=== PATIENT | male | born 1990 | race Caucasian/White ===

== ENCOUNTER 2024-03-14 21:38 | Emergency (ER) | payer SELFPAY ==
[2024-03-14 22:02] VITALS: BP 125/87
[2024-03-14 22:18] LABS: % Basophils 0.1 % (0-2); % Eosinophils 0.4 % (0-6); % Immature Granulocytes 0.1 % (0-0.5); % Lymphocytes 21.5 % (20.5-51.1); % Monocytes 8.1 % (1.7-9.3); % Neutrophils 69.8 % (42.2-75.2); Absolute Lymphocytes 1.6 10^3/uL (1.2-3.4); Absolute Monocytes 0.6 10^3/uL (0.1-0.6); Hematocrit 46.9 % (39.0-52.0); Hemoglobin 16.8 g/dL (13.0-18.0); Mean Corp Hgb Conc. 35.8 g/dL (33.0-37.0); Mean Corpuscular Hgb 30.1 pg (27.0-31.0); Mean Corpuscular Volume 84.1 fL (80.0-94.0); Mean Platelet Volume 10.2 fL (7.4-10.4); Nucleated Red Blood Cells % 0 % (-); Platelet Count 164 10^3/uL (130-400); Red Blood Cell Count 5.58 10^6/uL (4.70-6.10); Red Cell Dist. Width 12.3 % (11.5-14.5); White Blood Cell Count 7.2 10^3/uL (4.8-10.8)
[2024-03-14 22:34] LABS: ALT (SGPT) 192 U/L (0-50); AST (SGOT) 91 U/L (17-59); Albumin 4.5 g/dl (3.5-5.0); Alkaline Phosphatase 51 U/L (38-126); Blood Urea Nitrogen 21 mg/dl (9-20); Calcium 9.6 mg/dl (8.4-10.2); Carbon Dioxide 26 mmol/L (22-30); Chloride 104 mmol/L (98-107); Glucose 101 mg/dl (70-99); Lipase 51 U/L (23-300); Potassium 4.9 mmol/L (3.5-5.1); Sodium 141 mmol/L (135-145); Total Bilirubin 0.8 mg/dl (0.2-1.3); Total Protein 7.6 g/dl (6.3-8.2); eGFR > 60.00
[2024-03-14 22:49] LABS: Urine Albumin Trace (Neg - Trace); Urine Bilirubin Negative (Negative); Urine Character Clear (Clear); Urine Color Yellow; Urine Glucose Negative (Negative); Urine Ketone 2+ (Negative); Urine Leukocyte Negative (Negative); Urine Nitrite Negative (Negative); Urine Occult Blood Negative (Negative); Urine Urobilinogen Negative (Neg - 1+)
[2024-03-14 23:36] VITALS: BP 124/66
[2024-03-14 23:37] VITALS: BMI 21.7
[2024-03-15] VITALS: BP 132/63
[2024-03-15 01:16] VITALS: BP 124/70
--- NOTE | 2024-03-15 01:29 | ED.GENMED ---
History of Present Illness
General
Chief Complaint: Abdominal Pain
Source: patient
Exam Limitations: none
Time Seen by Provider: 03/15/24 00:32
History of Present Illness
History of Present Illness:
This is a 33 year old male that comes in with c/o abd pain. States that this started last Saturday and has been constant. States that he has tried Ibuprofen and it is not getting any better. States that occasionally he may get just a little relief
but then it gets bad again. States that he went to and was diagnosed with the Flu on Saturday. Denies any fever, chills, chest pain, SOB, nausea, vomiting, diarrhea, headache, dizziness, urinary burning.
Past History
Past History
ED Past Medical History: None; Negative Asthma, HTN, Hypercholesterolemia or NIDDM
ED Past Surgical History: None
Social History
Tobacco: Former smoker
Alcohol: None
Personal: Single
Living: with family
Review of Systems
Review of Systems
All Other Systems: ROS reviewed and negative except as documented in HPI and ROS
Constitutional: Reports no symptoms; Denies fever or chills
EENT: Reports no symptoms
Respiratory: Reports no symptoms; Denies cough or trouble breathing
Cardiac: Reports no symptoms; Denies chest pain
ABD/GI: Reports abdominal pain; Denies nausea, vomiting or diarrhea
: Reports no symptoms; Denies dysuria, frequency or urgency
Musculoskeletal: Reports no symptoms
Skin: Reports no symptoms
Neurological: Reports no symptoms; Denies dizzy or headache
Psychiatric: Reports no symptoms
Phy Exam
General Physical Exam
General Presentation: mild distress
General age: appears stated age
General Skin: warm and dry
General Habitus: normal
General Mental: alert
General Hydration: appears well hydrated
ENT Exam
ENT Exam: TM's normal, pharynx normal and neck supple
Eye Exam
Eye Exam: EOMI
Cardiovascular Exam
Cardiovascular Exam: regular rate/rhythm, no edema, no murmur and normal peripheral pulses
Pulmonary Exam
Pulmonary Exam: lungs clear, no respiratory distress, no rales, chest non tender, no crackles, no rhonchi, no wheezing and no cough
Gastrointestinal Exam
Gastrointestinal Exam: normal bowel sounds, soft, no organomegaly, no pulsatile mass, non distended and tender (Epigastric and RUQ tenderness with palpation)
Musculoskeletal Exam
Musculoskeletal Exam: full ROM and no edema
Skin Exam
Skin Exam: normal color, warm/dry, no rash and no petechia
Psychiatric Exam
Psychiatric Exam: normal mood/affect
Course
Orders/Labs/Results
Orders:
Orders
03/14/24 22:07
IV Insert/Care/Rem.- Treatment PRN
03/14/24 22:11
Complete Blood Count/With Diff Urgent
Comprehensive Metabolic Panel Urgent
Lipase Urgent
03/14/24 22:37
Urinalysis Reflex To Culture Urgent
Date Specimen was Collected: 03/14/24
Time Specimen was Collected: 22:09
03/15/24 01:29
Pantoprazole [Protonix IV] 40 mg IV NOW STA
Sucralfate Suspension [Carafate Suspension] 1 gm PO NOW STA
US Abdomen Complete/Upper Urgent
Comment:
Reason For Exam: upper abd pain, elevated liver enzymes
Abnormal Lab Results
03/14/24 03/14/24
22:11 22:37
BUN 21 H mg/dl
(9-20)
Glucose 101 H mg/dl
(70-99)
AST 91 H U/L
(17-59)
ALT 192 H U/L
(0-50)
Urine Ketones 2+ A
(Negative)
03/14/24 22:11
03/14/24 22:11
Very slight Dehydration. Glucose nonfasting. AST/ALT elevation. Urine negative for infection. Lipase normal at 51
Vital Signs
Initial and Last Documented VS:
Initial Vital Signs
Temp Pulse Resp BP Pulse Ox
98.4 F 94 18 125/87 99
03/14/24 22:02 03/14/24 22:02 03/14/24 22:02 03/14/24 22:02 03/14/24 22:02
Last Documented Vital Signs
Temp Pulse Resp BP Pulse Ox
98.4 F 94 18 132/63 98
03/14/24 22:02 03/14/24 22:02 03/14/24 22:02 03/15/24 00:00 03/15/24 00:30
MDM/Problems Addressed
Differential Diagnosis Includes:
Gastritis, Gallbladder disease
MDM/Problems Addressed:
This is a 33 year old male that comes in with c/o upper abd pain. States that this has been going on since last Saturday. States that it is constant and he has tried IBuprofen and all kind of things.
Will check labs. US and medicate with Protonix and Carafate.
back into see patient. Explained that his blood work shows elevation of his liver enzymes. His US shows a fatty liver. Otherwise there is stones in the kidney on the right but they will not cause pain unless they try to move. This is most likely a
Gastritis. Will give patient prescriptions for Carafate and Protonix. Patient to stay away from Ibuprofen and Caffeine. Patient to follow up with the family doctor. Return with any concerns
Chronic conditions affecting care:
NA
Acute Exacerbation and/or Progression of Chronic Illness:
NA
*Radiology
Radiology exam reviewed: radiology read reviewed (US night hawk- visualized pancreas unremarkable. Slightly echogenic liver suggesting a fatty infiltration without focal abnormality. Antegrade main portal venous steven. Gallbladder normal in size
without stone, wall thickening or focal tenderness. Normal caliber common duct 4mm. No hydronephrosis in ) and all reviewed NAD by ED Provider (US cont-in either kidney. Echogenic focus with twinkle artifact suggestive of stone upper pole right
kidney measuring 5mm and lower pole left kidney 5mm. Spleen unremarkable. No ascites.)
*Pulse Oximetry
Patient hypoxic: no
*EKG
Interpreted by ED Provider?: NA
Rate: EKG- N/A
*Rotary Surface Grinder Interpretation
Rate: Rotary Surface Grinder- N/A
*Critical Care Note
Total Time (30-74mins, 75-104mins- exclusive of procedures): Not Applicable
ED Attending Note
-
Portions of this chart may have been created with voice recognition software.� Occasional wrong word or��sound alike� substitutions may have occurred due to the inherent limitations of voice recognition software.
Discharge Plan
Departure
Patient Disposition: Home (Routine Discharge)
Date of Disposition: 03/15/24
Time of Disposition: 02:52
Patient with high blood pressure during this ER visit?: Yes
Condition: Good
Covid-19: Not Applicable
Discharge Problem:
Gastritis
Instructions: Gastritis (DC), BLOOD PRESSURE
Prescriptions:
New
pantoprazole [Protonix] 40 mg tablet,delayed release (DR/EC)
40 mg PO DAILY Qty: 30 0RF
sucralfate [Carafate] 1 gram tablet
1 g PO ACHS Qty: 40 0RF
Rx Instructions:
Dissolve in 2 tsp water and drink. 30min-1 hour before meals and Bedtime
Referrals:
NONE,* [Family Provider] -
Activity Restrictions/Additional Instructions:
As discussed, your blood work shows that your liver enzymes are mildly elevated. Your Ultrasound shows that you have a fatty liver. This is most likely a Gastritis. Please stay away from Caffeine/coffee and Ibuprofen. This is very irritating to the
stomach lining. You have had 2 prescriptions sent to your Pharmacy. The first is Protonix which is daily. The second is for Carafate which you will take 30min to 1 hour before meals and again at bedtime. Please dissolve the pill in 2 tsp of water.
Follow up with the family doctor for recheck. If you continue with pain you may need to see the Gastrointestinal specialist. IF YOU HAVE ANY OTHER CONCERNS PLEASE RETURN TO THE EMERGENCY ROOM
Interventions
Interventions:
*Risk Screen - Suicide Last Done: 03/14/24 22:02
*General Assessment Last Done: 03/14/24 22:02
*Neglect/Abuse Screening Last Done: 03/14/24 22:02
ED- Fall Risk Assessment Last Done: 03/14/24 23:38
*ED COVID-19 Vaccine History Last Done: 03/14/24 23:38
HR-Kpuipy-Gwerosgiyb Assessment Last Done: 03/14/24 23:38
Discharge Date and Time
Print Language: [id number]
[2024-03-15] MEDS: CARAFATE SUSPENSION 1 GM PO (01:49)
[2024-03-15] MEDS: PROTONIX IV 40 MG IV (01:50)
[2024-03-15 02:29] VITALS: BP 128/68
== END 2024-03-15 03:04 | disposition home or self-care (01) ==
LOC: EMR 21:38
PROVIDERS: Emergency Medicine; EMERGENCY PHYSICIAN Student in an Organized Health Care Education/Training Program
DX: K29.00 Acute gastritis without bleeding (principal); E86.0 Dehydration; N20.0 Calculus of kidney; J11.1 Influenza due to unidentified influenza virus with other respiratory manifestations; R03.0 Elevated blood-pressure reading, without diagnosis of hypertension; K76.0 Fatty (change of) liver, not elsewhere classified; Z87.891 Personal history of nicotine dependence
CPT/HCPCS: 99284; 96374; 76700; 80053; 81003; 83690; 85025